=== PATIENT | female | born 1945 | race African-American/Black ===

== ENCOUNTER 2017-09-05 15:18 | Emergency (ER) | payer MEDICARE, OTHER ==
[~2017-09-05] VITALS: Ht 170.2 cm; Wt 54.5 kg
[~2017-09-05 15:18] MED LIST: HYDR-3612
[2017-09-05 15:32] VITALS: Ht 170.2 cm; Wt 54.5 kg
[2017-09-05] MEDS ORDERED: morphine 4 MG/ML VIAL IV STA (16:20)
[2017-09-05] MEDS ORDERED: ASPIRIN 325 MG TAB PO STA (16:20)
--- NOTE | 2017-09-05 16:42 | RADRPT ---
PROCEDURE: US Lower extremity Venous. CLINICAL INDICATION: Right leg edema , pain TECHNIQUE: Multiple sonographic images of the right lower extremity deep venous system was obtaine d utilizing grayscale, color-flow, compressive sonography and doppler imaging with augmentation. Th e images were reviewed on a PACS workstation. COMPARISON: None. FINDINGS: There is normal compressibility and flow within the right common femoral, femoral, posterior tibial, peroneal and popliteal veins. RPTAT: AA IMPRESSION: No sonographic evidence for deep venous thrombosis. .Gianni Ortiz MD, MD Date Time Electronically viewed and signed by .Gianni Ortiz MD, on 09/05/2017 16:42 .S/
[2017-09-05 16:51] LABS: BASOPHILS % 0.3 % (0.0-2.0); EOSINOPHILS # 0.3 10^3/ul (0.0-0.5); EOSINOPHILS % 2.4 % (0.0-7.0); LYMPHOCYTES # 3.6 10^3/ul (0.8-2.9); LYMPHOCYTES % 34.9 % (15.0-51.0); MEAN CORPUSCULAR HEMOGLOBIN 25.9 pg (29.0-33.0); MEAN CORPUSCULAR HGB CONC 32.5 g/dl (32.0-37.0); MEAN CORPUSCULAR VOLUME 79.7 fl (82.0-101.0); MEAN PLATELET VOLUME 9.2 fl (7.4-10.4); MONOCYTE # 0.4 10^3/ul (0.3-0.9); MONOCYTES % 4.2 % (0.0-11.0); NEUTROPHILS % 57.9 % (39.0-77.0); PLATELET COUNT 367 10^3/UL (140-415); RED BLOOD COUNT 5.02 10^6/ul (4.20-5.40); RED CELL DISTRIBUTION WIDTH 14.4 % (11.5-14.5); WHITE BLOOD COUNT 10.4 10^3/ul (4.8-10.8)
--- NOTE | 2017-09-05 16:55 | RADRPT ---
PROCEDURE: XR Chest. CLINICAL INDICATION: Chest pain . TECHNIQUE: Single frontal chest x-ray. COMPARISON: CR CHEST 04/28/2014 FINDINGS: The lungs are clear of acute infiltrates, edema, effusions, or masses.. The cardiomediastinal silho uette is unremarkable. The osseous structures are intact. IMPRESSION: No acute cardiopulmonary disease. RPTAT: RR .Tyrone Lee MD, Date Time Electronically viewed and signed by .Tyrone Lee MD, on 09/05/2017 16:55 .L/
[2017-09-05] MEDS ORDERED: LIDOCAINE/MYLANTA 40 ML BTL PO ONE (17:00)
[2017-09-05] MEDS ORDERED: ACETAMINOPHEN 325 MG TAB PO ONE (17:00)
--- NOTE | 2017-09-05 17:00 | ERD ---
ER Documentation Chief Complaint Chief Complaint cp & right leg pain while shopping per pt Hx:[place] & DVT HPI This 72-year-old female presents for right leg pain 1 day and she has a history of DVT and states that it feels like that. She also has chest pain that is substernal and pressure-like does not radiate was 1 hour per. States that she also has a history of an [place]. ROS All systems reviewed and are negative except as per history of present illness. Medications Home Meds Active Scripts Ranitidine Hcl* (Zantac*) 150 Mg Tablet, 150 MG PO BID Y for EPIGASTRIC PAIN, # 30 TAB Prov:ROEL OLSON DO 09/05/17 Naproxen* (Naproxen*) 375 Mg Tablet, 375 MG PO BID Y for PAIN, #14 TAB Prov:ROEL OLSON DO 09/05/17 Hydrocodone/Acetaminophen ([place] 5-325 Tablet) 1 Each Tablet, 1 EACH PO Q6, #14 TAB Prov:ROEL OLSON DO 09/05/17 Reported Medications Hydrocodone Bit-Acetaminophen* ([place]*) 10-325 Tablet 05/14/14 Allergies Allergies: Coded Allergies: ampicillin (Verified Allergy, Intermediate, 05/14/14) PMhx/Soc History of Surgery: No Anesthesia Reaction: No Hx Neurological Disorder: No Hx Respiratory Disorders: No Hx Cardiac Disorders: No Hx Psychiatric Problems: No Hx Miscellaneous Medical Probl: No Hx Alcohol Use: No Hx Substance Use: No Hx Tobacco Use: No Physical Exam Vitals Vital Signs Date Time Temp Pulse Resp B/P Pulse Ox O2 Delivery O2 Flow Rate FiO2 09/05/17 15:32 97.9 88 22 130/58 97 Physical Exam Const: [] Mild distress Head: Atraumatic Eyes: Normal Conjunctiva ENT: Normal External Ears, Nose and Mouth. Neck: Full range of motion..~ No meningismus. Resp: Clear to auscultation bilaterally Cardio: Regular rate and rhythm, no murmurs Abd: Soft, non tender, non distended. Normal bowel sounds Skin: No petechiae or rashes Back: No midline or flank tenderness Ext: No cyanosis, or edema, distal pulses intact all 4 extremities Neur: Awake and alert oriented 3, no focal deficits Psych: Normal Mood and Affect Result Diagram: 09/05/17 1630 11/20/17 1630 Results 24 hrs Laboratory Tests Test 09/05/17 16:30 White Blood Count 10.410^3/ul Red Blood Count 5.0210^6/ul Hemoglobin 13.0g/dl Hematocrit 40.0% Mean Corpuscular Volume 79.7fl Mean Corpuscular Hemoglobin 25.9pg Mean Corpuscular Hemoglobin Concent 32.5g/dl Red Cell Distribution Width 14.4% Platelet Count 71797^3/UL Mean Platelet Volume 9.2fl Neutrophils % 57.9% Lymphocytes % 34.9% Monocytes % 4.2% Eosinophils % 2.4% Basophils % 0.3% Nucleated Red Blood Cells % 0.0/100WBC Neutrophils # 6.010^3/ul Lymphocytes # 3.610^3/ul Monocytes # 0.410^3/ul Eosinophils # 0.310^3/ul Basophils # 0.010^3/ul Nucleated Red Blood Cells # 0.010^3/ul Sodium Level 140mmol/L Potassium Level 4.4mmol/L Chloride Level 101mmol/L Carbon Dioxide Level 31mmol/L Anion Gap 12 Blood Urea Nitrogen 17mg/dl Creatinine 0.81mg/dl Glucose Level 104mg/dl Calcium Level 10.8mg/dl Troponin I < 0.012ng/ml B-Type Natriuretic Peptide 112PG/ML Current Medications Medications (Trade) Dose Ordered Sig/Josselyn Route PRN Reason Start Time Stop Time Status Last Admin Dose Admin Aspirin (Aspirin) 325 mg ONCE STAT PO 09/05/17 16:20 09/05/17 16:22 DC 09/05/17 16:56 Morphine Sulfate (morphine) 4 mg ONCE STAT IV 09/05/17 16:20 09/05/17 16:22 DC 09/05/17 16:56 Miscellaneous Medication (Gi Cocktail (2)) 40 ml ONCE ONCE PO 09/05/17 17:00 09/05/17 17:01 DC 09/05/17 16:56 Acetaminophen (Tylenol Tab) 650 mg ONCE ONCE PO 09/05/17 17:00 09/05/17 17:01 DC Procedures/MDM Elderly female with chest pain that resolved after aspirin 325 mg administration which likely means resolve spontaneously. Patient is also given a GI cocktail. She refused any morphine just wanted Tylenol for her leg pain. Negative for DVT. Completely normal EKG and negative initial troponin. 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 She was at the store buying their food when she felt the pain. By her wishes I am going to discharge her however I am discharging her see her primary care doctor tomorrow if possible return to the emergency room immediately for any return of chest pain. EKG interpretation: Normal sinus rhythm, rate of 75, normal axis, no ST or T- wave changes concerning for acute ischemia. Normal EKG manager monitoring interpretation: Sinus rhythm without arrhythmia Chest x-ray interpretation: I see no acute process, I see no widened mediastinum , pneumothorax, no pulmonary edema, no fractures Lower extremity DVT venous ultrasound: No DVT. Departure Diagnosis: Primary Impression: Chest pain Additional Impression: Right leg pain ROEL OLSON DO Sep 05, 2017 17:00
[2017-09-05 17:15] LABS: ANION GAP 12 (8-16); BLOOD UREA NITROGEN 17 mg/dl (7-20); CALCIUM 10.8 mg/dl (8.4-10.2); CARBON DIOXIDE 31 mmol/L (21-31); CHLORIDE 101 mmol/L (97-110); CREATININE 0.81 mg/dl (0.44-1.00); GLUCOSE 104 mg/dl (70-220); POTASSIUM 4.4 mmol/L (3.5-5.1); SODIUM 140 mmol/L (135-144)
[2017-09-05 17:26] LABS: B-TYPE NATRIURETIC PEPTIDE 112 PG/ML (0-125)
[2017-09-05 17:29] LABS: TROPONIN-I < 0.012 ng/ml (0.00-0.12)
[2017-09-05] MEDS ORDERED: HYDR-906 PO (17:37)
[2017-09-05] MEDS ORDERED: NAPR-685 PO (17:37)
[2017-09-05] MEDS ORDERED: RANI150T9 PO (17:37)
[2017-09-05 18:42] VITALS: BP 136/77; PULSE 78; RESP 14; TEMP 97.9
== END 2017-09-05 18:50 | disposition home or self-care (01) ==
LOC: E/R 15:18
DX: R07.9 Chest pain, unspecified (principal)
CPT/HCPCS: 36415; 71010; 80048; 83880; 84484; 85025; 93005; 93971; 96374; 99285; J2270